=== PATIENT | female | born 1995 | race African-American/Black ===

== ENCOUNTER 2022-03-05 01:38 | Emergency (ER) | payer BC ==
[~2022-03-05] VITALS: Ht 162.6 cm; Wt 122.4 kg
[2022-03-05] MEDS ORDERED: ALBUTEROL (0.083%) 2.5MG/3ML NEB HHN SCH (02:16)
[2022-03-05] MEDS ORDERED: PREDNISONE 20MG TABLET PO SCH (02:16)
[2022-03-05] MEDS ORDERED: IPRATROPIUM BROMIDE (0.02%) 0.5MG/2.5ML NEB HHN STA (02:16)
[2022-03-05] MEDS ORDERED: IPRATROPIUM BROMIDE (0.02%) 0.5MG/2.5ML NEB HHN SCH (02:30)
[2022-03-05] MEDS ORDERED: ALBU90AE INH (03:54)
[2022-03-05] MEDS ORDERED: P20 MT (03:54)
[2022-03-05] MEDS ORDERED: NIRM1TAB4 PO (03:54)
[2022-03-05 04:10] VITALS: BP 138/82
[2022-03-07] MEDS ORDERED: P20 PO (13:27)
[2022-03-07] MEDS ORDERED: NIRM1TAB4 PO (13:27)
[2022-03-07] MEDS ORDERED: ALBU90AE INH (13:27)
== END 2022-03-05 04:12 | disposition home or self-care (01) ==
LOC: ER 01:38
DX: U07.1 COVID-19 (principal); J45.901 Unspecified asthma with (acute) exacerbation
CPT/HCPCS: 71045; 81025; 87426; 87804; 93005; 94640; 99285; C9803; J7512; Z7610